=== PATIENT | female | born 1955 | race African-American/Black ===

== ENCOUNTER 2019-01-25 05:17 | Inpatient (IN) | payer MEDICAID, OTHER ==
[~2019-01-25] VITALS: Ht 170.2 cm; Wt 113.4 kg
[2019-01-25] VITALS (43 sets, daily range): BP systolic 99–152; BP diastolic 59–94
[2019-01-25] MEDS ORDERED: THROMBIN (BOVINE) 5000 UNITS/VIAL TOP ONE ×2 (06:27→06:28)
[2019-01-25] MEDS ORDERED: NORMAL SALINE 0.9% 10 ML SYR ONE (06:27)
[2019-01-25] MEDS ORDERED: GELATIN SPONGE,ABSORBABLE 12-7MM SPONGE ONE (06:27)
[2019-01-25] MEDS ORDERED: BACITRACIN 50,000 UNITS/VIAL ONE (06:28)
[2019-01-25] MEDS ORDERED: LIDOCAINE HCL/EPINEPHRINE 1%-EPI 1:100,000 20 ML VIAL ONE (06:28)
[2019-01-25] MEDS ORDERED: ROCURONIUM BROMIDE 10MG/ML VIAL 5ML IV ONE (06:39)
[2019-01-25] MEDS ORDERED: GLYCOPYRROLATE 0.2 MG/ML 2ML VIAL ONE (06:39)
[2019-01-25] MEDS ORDERED: NEOSTIGMINE METHYLSULFATE 1MG/ML 10 ML VIAL ONE (06:39)
[2019-01-25] MEDS ORDERED: FENTANYL CITRATE/PF 50MCG/ML 2ML VIAL ONE (06:39)
[2019-01-25] MEDS ORDERED: MIDAZOLAM HCL 2 MG/2 ML VIAL ONE (06:39)
[2019-01-25] MEDS ORDERED: PROPOFOL 200MG/20ML VIAL IV ONE (06:39)
[2019-01-25] MEDS ORDERED: BACL20TA PO (07:09)
[2019-01-25] MEDS ORDERED: HYDR-4009 PO (07:09)
[2019-01-25] MEDS ORDERED: METF-416 PO (07:09)
[2019-01-25] MEDS ORDERED: LOSA50TA20 PO (07:09)
[2019-01-25] MEDS ORDERED: SODIUM CHLORIDE 0.9% 1,000 ML IV SCH (07:30)
[2019-01-25] MEDS ORDERED: ONDANSETRON HCL 4MG/2ML INJ ONE (07:44)
[2019-01-25] MEDS ORDERED: DEXAMETHASONE 4MG/ML 1ML VIAL ONE (07:44)
[2019-01-25] MEDS ORDERED: HYDROMORPHONE HCL/PF 2MG/ML (OR) ONE (07:46)
[2019-01-25 08:44] LABS: CLARITY URINE CLEAR (CLEAR); COLOR URINE YELLOW (YELLOW); KETONES URINE NEGATIVE (NEGATIVE); LEUKOCYTE ESTERASE URINE NEGATIVE (NEGATIVE); NITRITE URINE NEGATIVE (NEGATIVE); OCCULT BLOOD URINE NEGATIVE (NEGATIVE); PROTEIN URINE NEGATIVE (NEGATIVE); SPECIFIC GRAVITY URINE 1.014 (1.005-1.030); UROBILINOGEN URINE 0.2 E.U./dL (0.2-1.0)
[2019-01-25] MEDS ORDERED: ONDANSETRON HCL 4MG/2ML INJ IV PRN ×2 (09:00→10:00)
[2019-01-25] MEDS ORDERED: MEPERIDINE HCL/PF 25MG/ML CPJ IV PRN (09:00)
[2019-01-25] MEDS ORDERED: LABETALOL HCL 20MG/4ML CARPUJECT IV PRN (09:00)
[2019-01-25] MEDS ORDERED: DEXTROSE 50% WATER 50ML SYRINGE IV PRN (10:15)
[2019-01-25] MEDS ORDERED: ONDANSETRON INJ IV PRN (10:45)
[2019-01-25] MEDS ORDERED: NALOXONE INJ IV PRN (10:45)
[2019-01-25] MEDS ORDERED: DIPHENHYDRAMINE INJ IV PRN (10:45)
[2019-01-25] MEDS: HYDROMORPHONE HCL/PF 2MG/ML CPJ IV PRN ×4 (10:47→11:04)
[2019-01-25] MEDS ORDERED: NICARDIPINE 100 MG in SODIUM CHLORIDE 0.9% 60 ML IV PRN (11:00)
[2019-01-25] MEDS: DEXT 5%/LACTATED RINGERS 1,000 ML IV SCH ×3 (11:02→23:42)
[2019-01-25] MEDS: HYDROMORPHONE PCA 10MG/50ML IV PRN (11:15)
[2019-01-25] MEDS: BLOOD SUGAR DIAGNOSTIC STRIP TEST SCH ×3 (12:13→21:54)
[2019-01-25] MEDS: INSULIN LISPRO 100 UNITS/ML SUBCUT SCH ×3 (12:30→22:02)
[2019-01-25] MEDS: MORPHINE SULFATE 4 MG/ML CPJ (NOT FOR IM USE) IV PRN ×3 (13:02→21:14)
[2019-01-25] MEDS ORDERED: CEFAZOLIN SODIUM 1000MG/VIAL IV SCH (14:00)
[2019-01-25] MEDS: CEFAZOLIN 1000MG PREMIX 50 ML IV SCH ×2 (14:03→22:02)
[2019-01-25] MEDS: CYCLOBENZAPRINE 10MG TABLET PO PRN (17:34)
[2019-01-25] MEDS ORDERED: IPRATROPIUM/ALBUTEROL 0.5-3(2.5)MG/3ML NEB HHN PRN (21:15)
[2019-01-25] MEDS ORDERED: BISACODYL 5MG TABLET PO PRN (21:15)
[2019-01-26] VITALS (84 sets, daily range): BP systolic 113–156; BP diastolic 46–95
[2019-01-26] MEDS: MORPHINE SULFATE 4 MG/ML CPJ (NOT FOR IM USE) IV PRN ×6 (00:46→21:20)
[2019-01-26] MEDS: HYDROCODONE/APAP 7.5/325MG 1 TAB TABLET PO PRN ×2 (01:57→15:43)
[2019-01-26] MEDS: CEFAZOLIN 1000MG PREMIX 50 ML IV SCH ×3 (05:01→21:51)
[2019-01-26] MEDS: CYCLOBENZAPRINE 10MG TABLET PO PRN ×2 (05:01→15:38)
[2019-01-26 05:55] LABS: CHLORIDE 106 mEq/L (98-107)
[2019-01-26 05:56] LABS: BASOPHILS % 0.4 % (0.0-2.0); EOSINOPHILS % 0.7 % (0.0-5.0); HEMATOCRIT. 29.9 % (36.0-48.0); HEMOGLOBIN. 9.6 g/dL (12.0-16.0); LYMPHOCYTES % 24.3 % (20.0-50.0); MEAN CORPUSCULAR HEMOGLOBIN 25.8 pg (28.0-32.0); MEAN CORPUSCULAR VOLUME 80.4 fL (81.0-99.0); MEAN PLATELET VOLUME 9.7 fl (7.4-10.4); MONOCYTES % 9.7 % (2.0-8.0); NEUTROPHILS % 64.9 % (40.0-76.0); PLATELET 203 x1000/uL (130-400); RED BLOOD CELL COUNT 3.72 mill/uL (4.2-5.4); RED CELL DISTRIBUTION WIDTH 15.7 % (11.6-14.6)
[2019-01-26] MEDS: BLOOD SUGAR DIAGNOSTIC STRIP TEST SCH ×4 (06:21→21:17)
[2019-01-26] MEDS: INSULIN LISPRO 100 UNITS/ML SUBCUT SCH ×4 (06:21→21:19)
[2019-01-26] MEDS: DEXT 5%/LACTATED RINGERS 1,000 ML IV SCH ×2 (08:35→13:41)
[2019-01-26] MEDS ORDERED: DOCUSATE SODIUM 100MG CAPSULE PO SCH (09:00)
[2019-01-26] MEDS: PANTOPRAZOLE 40MG DR TABLET PO SCH (12:37)
[2019-01-26] MEDS: HYDROMORPHONE PCA 10MG/50ML IV PRN (12:39)
[2019-01-27] VITALS (58 sets, daily range): BP systolic 97–157; BP diastolic 53–101
[2019-01-27] MEDS: DEXT 5%/LACTATED RINGERS 1,000 ML IV SCH ×2 (01:31→15:30)
[2019-01-27] MEDS: HYDROCODONE/APAP 7.5/325MG 1 TAB TABLET PO PRN ×3 (01:31→18:55)
[2019-01-27] MEDS: CYCLOBENZAPRINE 10MG TABLET PO PRN ×3 (04:31→20:31)
[2019-01-27] MEDS: MORPHINE SULFATE 4 MG/ML CPJ (NOT FOR IM USE) IV PRN (04:32)
[2019-01-27] MEDS: CEFAZOLIN 1000MG PREMIX 50 ML IV SCH ×2 (06:09→13:08)
[2019-01-27] MEDS: INSULIN LISPRO 100 UNITS/ML SUBCUT SCH ×3 (06:10→17:50)
[2019-01-27] MEDS: BLOOD SUGAR DIAGNOSTIC STRIP TEST SCH ×4 (06:10→21:00)
[2019-01-27] MEDS: PANTOPRAZOLE 40MG DR TABLET PO SCH (09:30)
[2019-01-27 10:19] LABS: BASOPHILS % 0.7 % (0.0-2.0); EOSINOPHILS % 1.3 % (0.0-5.0); HEMATOCRIT. 31.7 % (36.0-48.0); HEMOGLOBIN. 10.3 g/dL (12.0-16.0); LYMPHOCYTES % 15.1 % (20.0-50.0); MEAN CORPUSCULAR VOLUME 80.3 fL (81.0-99.0); MEAN PLATELET VOLUME 9.2 fl (7.4-10.4); MONOCYTES % 8.8 % (2.0-8.0); NEUTROPHILS % 74.1 % (40.0-76.0); PLATELET 183 x1000/uL (130-400); RED BLOOD CELL COUNT 3.95 mill/uL (4.2-5.4); RED CELL DISTRIBUTION WIDTH 15.5 % (11.6-14.6)
[2019-01-27] MEDS: HYDROMORPHONE PCA 10MG/50ML IV PRN (10:20)
[2019-01-27 10:24] LABS: CHLORIDE 104 mEq/L (98-107)
[2019-01-27] MEDS ORDERED: POTASSIUM CHLORIDE 20MEQ TABLET SR PO SCH (13:00)
[2019-01-27] MEDS ORDERED: DOCUSATE SODIUM 100MG CAPSULE PO PRN (17:00)
[2019-01-28] VITALS: BP 153/79
[2019-01-28] MEDS: INSULIN LISPRO 100 UNITS/ML SUBCUT SCH ×5 (00:06→22:37)
[2019-01-28 04:00] VITALS: BP 151/71
[2019-01-28 07:25] LABS: BASOPHILS % 0.5 % (0.0-2.0); EOSINOPHILS % 1.1 % (0.0-5.0); HEMATOCRIT. 30.5 % (36.0-48.0); HEMOGLOBIN. 9.9 g/dL (12.0-16.0); LYMPHOCYTES % 14.7 % (20.0-50.0); MEAN CORPUSCULAR HEMOGLOBIN 25.5 pg (28.0-32.0); MEAN CORPUSCULAR VOLUME 78.5 fL (81.0-99.0); MEAN PLATELET VOLUME 9.5 fl (7.4-10.4); MONOCYTES % 7.2 % (2.0-8.0); NEUTROPHILS % 76.5 % (40.0-76.0); PLATELET 200 x1000/uL (130-400); RED BLOOD CELL COUNT 3.88 mill/uL (4.2-5.4); RED CELL DISTRIBUTION WIDTH 15.3 % (11.6-14.6)
[2019-01-28] MEDS: BLOOD SUGAR DIAGNOSTIC STRIP TEST SCH ×4 (07:27→20:39)
[2019-01-28 08:00] VITALS: BP 155/86
[2019-01-28] MEDS: LOSARTAN POTASSIUM 50 MG TABLET PO SCH (08:45)
[2019-01-28] MEDS: PANTOPRAZOLE 40MG DR TABLET PO SCH (08:46)
[2019-01-28] MEDS: CYCLOBENZAPRINE 10MG TABLET PO PRN (08:50)
[2019-01-28 08:59] LABS: CHLORIDE 103 mEq/L (98-107)
[2019-01-28] MEDS: MORPHINE SULFATE 4 MG/ML CPJ (NOT FOR IM USE) IV PRN ×3 (10:20→21:19)
[2019-01-28] MEDS ORDERED: POTASSIUM CHLORIDE 20MEQ TABLET SR PO NR (11:57)
[2019-01-28 12:00] VITALS: BP 131/67
[2019-01-28] MEDS: HYDROCODONE/APAP 7.5/325MG 1 TAB TABLET PO PRN (13:20)
[2019-01-28] MEDS: DEXT 5%/LACTATED RINGERS 1,000 ML IV SCH (15:10)
[2019-01-28] MEDS: CARISOPRODOL 350 MG TABLET PO PRN (15:41)
[2019-01-28 16:00] VITALS: BP 128/90
[2019-01-28 20:00] VITALS: BP 151/97
[2019-01-29] VITALS: BP 144/72
[2019-01-29] MEDS: MORPHINE SULFATE 4 MG/ML CPJ (NOT FOR IM USE) IV PRN ×6 (00:23→23:52)
[2019-01-29 04:00] VITALS: BP 152/90
[2019-01-29] MEDS: BLOOD SUGAR DIAGNOSTIC STRIP TEST SCH ×4 (06:28→20:17)
[2019-01-29 06:51] LABS: BASOPHILS % 0.2 % (0.0-2.0); HEMATOCRIT. 33.2 % (36.0-48.0); MEAN CORPUSCULAR VOLUME 78.5 fL (81.0-99.0); MEAN PLATELET VOLUME 9.6 fl (7.4-10.4); MONOCYTES % 8.7 % (2.0-8.0); NEUTROPHILS % 77.1 % (40.0-76.0); PLATELET 260 x1000/uL (130-400); RED BLOOD CELL COUNT 4.23 mill/uL (4.2-5.4); RED CELL DISTRIBUTION WIDTH 15.1 % (11.6-14.6)
[2019-01-29 07:11] LABS: CHLORIDE 104 mEq/L (98-107)
[2019-01-29 07:25] LABS: LDL CHOLESTEROL 123 mg/dL (5-100); PHOSPHORUS 3.6 mg/dL (2.5-4.9)
[2019-01-29 07:27] LABS: HDL CHOLESTEROL 45 mg/dL (40-59)
[2019-01-29 08:00] VITALS: BP 159/86
[2019-01-29] MEDS: PANTOPRAZOLE 40MG DR TABLET PO SCH (08:27)
[2019-01-29] MEDS: LOSARTAN POTASSIUM 50 MG TABLET PO SCH (08:27)
[2019-01-29] MEDS: CARISOPRODOL 350 MG TABLET PO PRN ×2 (08:28→23:52)
[2019-01-29] MEDS: INSULIN LISPRO 100 UNITS/ML SUBCUT SCH ×4 (08:33→20:26)
[2019-01-29] MEDS: HYDROCODONE/APAP 7.5/325MG 1 TAB TABLET PO PRN (11:43)
[2019-01-29 12:00] VITALS: BP 147/87
[2019-01-29 16:00] VITALS: BP 147/76
[2019-01-29] MEDS: POLYETHYLENE GLYCOL 3350 (17GM) 1 DOSE PACK PO SCH (19:31)
[2019-01-29 20:00] VITALS: BP 133/89
[2019-01-30] VITALS: BP 145/72
[2019-01-30] MEDS ORDERED: LACTULOSE 20G/30ML UDC PO NR
[2019-01-30] MEDS: MORPHINE SULFATE 4 MG/ML CPJ (NOT FOR IM USE) IV PRN ×7 (02:58→22:27)
[2019-01-30 04:00] VITALS: BP 147/89
[2019-01-30 06:45] LABS: BASOPHILS % 0.4 % (0.0-2.0); EOSINOPHILS % 3.1 % (0.0-5.0); HEMATOCRIT. 31.4 % (36.0-48.0); HEMOGLOBIN. 10.3 g/dL (12.0-16.0); LYMPHOCYTES % 22.2 % (20.0-50.0); MEAN CORPUSCULAR HEMOGLOBIN 25.7 pg (28.0-32.0); MEAN CORPUSCULAR VOLUME 78.2 fL (81.0-99.0); MEAN PLATELET VOLUME 9.3 fl (7.4-10.4); MONOCYTES % 10.2 % (2.0-8.0); NEUTROPHILS % 64.1 % (40.0-76.0); PLATELET 291 x1000/uL (130-400); RED BLOOD CELL COUNT 4.01 mill/uL (4.2-5.4)
[2019-01-30] MEDS: BLOOD SUGAR DIAGNOSTIC STRIP TEST SCH ×4 (07:23→20:43)
[2019-01-30 07:26] LABS: CHLORIDE 100 mEq/L (98-107)
[2019-01-30] MEDS: INSULIN LISPRO 100 UNITS/ML SUBCUT SCH ×4 (07:50→20:43)
[2019-01-30 08:00] VITALS: BP 150/88
[2019-01-30] MEDS: LOSARTAN POTASSIUM 50 MG TABLET PO SCH (08:21)
[2019-01-30] MEDS: PANTOPRAZOLE 40MG DR TABLET PO SCH (08:21)
[2019-01-30] MEDS: CARISOPRODOL 350 MG TABLET PO PRN ×2 (08:21→20:15)
[2019-01-30] MEDS: POLYETHYLENE GLYCOL 3350 (17GM) 1 DOSE PACK PO SCH (08:25)
[2019-01-30] MEDS ORDERED: NA PHOS,M-B/NA PHOS,DI-BA ENEMA 118ML PR NR ×2 (08:30)
[2019-01-30 16:00] VITALS: BP 137/84
[2019-01-30 20:00] VITALS: BP 123/68
[2019-01-31] VITALS: BP 169/85
[2019-01-31] MEDS: MORPHINE SULFATE 4 MG/ML CPJ (NOT FOR IM USE) IV PRN ×4 (02:31→21:48)
[2019-01-31 04:00] VITALS: BP 141/72
[2019-01-31] MEDS: BLOOD SUGAR DIAGNOSTIC STRIP TEST SCH ×4 (06:38→21:00)
[2019-01-31] MEDS: INSULIN LISPRO 100 UNITS/ML SUBCUT SCH ×4 (07:50→20:55)
[2019-01-31 08:00] VITALS: BP 159/67
[2019-01-31 08:20] LABS: CHLORIDE 102 mEq/L (98-107)
[2019-01-31 08:22] LABS: BASOPHILS % 0.4 % (0.0-2.0); EOSINOPHILS % 3.2 % (0.0-5.0); HEMATOCRIT. 31.1 % (36.0-48.0); HEMOGLOBIN. 10.2 g/dL (12.0-16.0); LYMPHOCYTES % 18.9 % (20.0-50.0); MEAN CORPUSCULAR HEMOGLOBIN 25.7 pg (28.0-32.0); MEAN CORPUSCULAR VOLUME 78.3 fL (81.0-99.0); MEAN PLATELET VOLUME 9.1 fl (7.4-10.4); MONOCYTES % 11.4 % (2.0-8.0); NEUTROPHILS % 66.1 % (40.0-76.0); PLATELET 325 x1000/uL (130-400); RED BLOOD CELL COUNT 3.98 mill/uL (4.2-5.4); RED CELL DISTRIBUTION WIDTH 14.6 % (11.6-14.6)
[2019-01-31] MEDS: POLYETHYLENE GLYCOL 3350 (17GM) 1 DOSE PACK PO SCH (08:52)
[2019-01-31] MEDS: LOSARTAN POTASSIUM 50 MG TABLET PO SCH (08:52)
[2019-01-31] MEDS: FAMOTIDINE 20MG TABLET PO SCH ×2 (08:52→18:13)
[2019-01-31] MEDS: CARISOPRODOL 350 MG TABLET PO PRN ×2 (09:59→20:40)
[2019-01-31] MEDS: HYDROCODONE/APAP 7.5/325MG 1 TAB TABLET PO PRN ×2 (10:49→18:14)
[2019-01-31] MEDS ORDERED: LACTULOSE 20G/30ML UDC PO NR (11:00)
[2019-01-31 11:16] VITALS: BP 128/68
[2019-01-31] MEDS ORDERED: NA PHOS,M-B/NA PHOS,DI-BA ENEMA 118ML PR NR (17:45)
[2019-01-31 20:00] VITALS: BP 136/79
[2019-01-31] MEDS: ENOXAPARIN 30MG/0.3ML SYR SUBCUT SCH (20:42)
[2019-02-01] VITALS: BP 128/69
[2019-02-01] MEDS: HYDROCODONE/APAP 7.5/325MG 1 TAB TABLET PO PRN ×3 (01:56→14:42)
[2019-02-01 04:00] VITALS: BP 139/74
[2019-02-01 06:46] LABS: BASOPHILS % 0.5 % (0.0-2.0); EOSINOPHILS % 3.7 % (0.0-5.0); HEMATOCRIT. 30.5 % (36.0-48.0); LYMPHOCYTES % 24.2 % (20.0-50.0); MEAN CORPUSCULAR HEMOGLOBIN 25.8 pg (28.0-32.0); MEAN CORPUSCULAR VOLUME 78.5 fL (81.0-99.0); MEAN PLATELET VOLUME 9.1 fl (7.4-10.4); MONOCYTES % 10.9 % (2.0-8.0); NEUTROPHILS % 60.7 % (40.0-76.0); PLATELET 358 x1000/uL (130-400); RED BLOOD CELL COUNT 3.89 mill/uL (4.2-5.4); RED CELL DISTRIBUTION WIDTH 14.9 % (11.6-14.6)
[2019-02-01 06:55] LABS: CHLORIDE 103 mEq/L (98-107)
[2019-02-01] MEDS: MORPHINE SULFATE 4 MG/ML CPJ (NOT FOR IM USE) IV PRN (06:57)
[2019-02-01] MEDS: BLOOD SUGAR DIAGNOSTIC STRIP TEST SCH ×2 (07:20→12:20)
[2019-02-01] MEDS: INSULIN LISPRO 100 UNITS/ML SUBCUT SCH ×2 (07:47→12:50)
[2019-02-01 08:00] VITALS: BP 156/69
[2019-02-01] MEDS ORDERED: NA PHOS,M-B/NA PHOS,DI-BA ENEMA 118ML PR PRN (09:00)
[2019-02-01] MEDS ORDERED: BISACODYL 10MG SUPP PR SCH (09:00)
[2019-02-01] MEDS: ENOXAPARIN 30MG/0.3ML SYR SUBCUT SCH (09:40)
[2019-02-01] MEDS: POLYETHYLENE GLYCOL 3350 (17GM) 1 DOSE PACK PO SCH (09:40)
[2019-02-01] MEDS: LOSARTAN POTASSIUM 50 MG TABLET PO SCH (09:41)
[2019-02-01] MEDS: FAMOTIDINE 20MG TABLET PO SCH (09:41)
[2019-02-01 12:00] VITALS: BP 140/80
[2019-02-01 15:05] VITALS: BP 140/80
== END 2019-02-01 15:58 | DRG 304 ==
LOC: OR 05:17 → MICUSO 05:18 → 6EST 01-27 15:30
PROVIDERS: ADMIT Internal Medicine; ATTEND Internal Medicine
PROC: 0SG1071 Fusion of 2 or more Lumbar Vertebral Joints with Autologous Tissue Substitute, Posterior Approach, Posterior Column, Open Approach (ICD-10-PCS; principal; 2019-01-25)
PROC: 0SB20ZZ Excision of Lumbar Vertebral Disc, Open Approach (ICD-10-PCS; 2019-01-25)
PROC: 4A11X4G Monitoring of Peripheral Nervous Electrical Activity, Intraoperative, External Approach (ICD-10-PCS; 2019-01-25)
DX: M47.26 Other spondylosis with radiculopathy, lumbar region (principal); G82.50 Quadriplegia, unspecified; E11.9 Type 2 diabetes mellitus without complications; D64.9 Anemia, unspecified; E66.9 Obesity, unspecified; E78.00 Pure hypercholesterolemia, unspecified; M48.00 Spinal stenosis, site unspecified; E87.6 Hypokalemia; I10 Essential (primary) hypertension; Z96.651 Presence of right artificial knee joint; M43.16 Spondylolisthesis, lumbar region; F17.210 Nicotine dependence, cigarettes, uncomplicated; K59.00 Constipation, unspecified; M48.061 Spinal stenosis, lumbar region without neurogenic claudication; M51.16 Intervertebral disc disorders with radiculopathy, lumbar region; Z90.49 Acquired absence of other specified parts of digestive tract; Z90.710 Acquired absence of both cervix and uterus; Z68.39 Body mass index [BMI] 39.0-39.9, adult; Z79.84 Long term (current) use of oral hypoglycemic drugs; G89.18 Other acute postprocedural pain
CPT/HCPCS: 36415; 71045; 72100; 76000; 80048; 80061; 82533; 82962; 83036; 83735; 83935; 84100; 84133; 84300; 84443; 86850; 86900; 88304; 88311; 93005; 95863; 95925; 95926; 95928; 95929; 97116; 97162; 97167; 97530; 97535; C1713; C1893; J0690; J1100; J1170; J1200; J1650; J1815; J2250; J2270; J2405; J2704; J2710; J3010; J3490; J7050; J7121

== ENCOUNTER 2019-12-15 20:24 | Emergency (ER) | payer MEDICAID ==
[~2019-12-15] VITALS: Ht 170.2 cm; Wt 109.0 kg
[~2019-12-15 20:24] MED LIST: BACL20TA PO; HYDR-4009 PO; LOSA50TA41 PO; METF-416 PO
[2019-12-15] MEDS ORDERED: KETOROLAC 30MG/ML VIAL IM ONE (22:30)
[2019-12-15] MEDS ORDERED: HYDROCODONE/ACETAMINOPHEN 5/325MG TABLET PO ONE (22:30)
[2019-12-16 00:15] VITALS: BP 155/78
== END 2019-12-16 00:15 | disposition home or self-care (01) ==
LOC: ER 20:24
DX: M54.5 Low back pain (principal); I10 Essential (primary) hypertension; E11.9 Type 2 diabetes mellitus without complications; Z98.890 Other specified postprocedural states
CPT/HCPCS: 72131; 96372; 99284; J1885